=== PATIENT | female | born 1955 | race Caucasian/White ===

== ENCOUNTER 2025-03-05 18:18 | Inpatient (IN) ==
[2025-03-05] MEDS: 0.9 % SODIUM CHLORIDE 1,000 ML IV ONE (19:47)
[2025-03-05] MEDS: CEFEPIME 2 GM VIAL IV ONE (19:47)
[2025-03-05 19:53] LABS: Basophils # (Auto) 0.01 K/mcL (0.00-0.30); Basophils % (Auto) 0.1 % (0.0-2.0); Eosinophils # (Auto) 0.03 K/mcL (0.00-0.70); Eosinophils % (Auto) 0.2 % (0.0-7.0); Hematocrit 38.9 % (34.1-44.9); Hemoglobin 12.4 g/dL (11.2-15.7); Lymphocytes # (Auto) 0.91 K/mcL (1.50-4.80); Lymphocytes % (Auto) 7.0 % (15.5-49.0); Mean Corpuscular HGB Conc 31.9 g/dL (31.0-36.0); Monocytes # (Auto) 0.63 K/mcL (0.10-0.90); Monocytes % (Auto) 4.9 % (1.0-12.0); Neutrophils % (Auto) 87.3 % (38.0-78.0); Platelet Count 207 K/mcL (140-440); RBC 4.13 M/mcL (3.59-5.38); WBC 12.9 K/mcL (4.5-11.0)
[2025-03-05 20:07] LABS: ALT/SGPT 27 U/L (<40); AST/SGOT 14 U/L (<32); Albumin 3.5 gm/dL (3.2-5.2); Albumin/Globulin Ratio 1.3 (1.0-2.3); Alkaline Phosphatase 56 U/L (39-117); Anion Gap 11.0 (8.0-16.0); Bilirubin,Total 0.6 mg/dL (0.1-1.0); Blood Urea Nitrogen 19 mg/dL (8-23); Calcium 8.9 mg/dL (8.6-10.4); Carbon Dioxide 24 mmol/L (22-30); Chloride 103 mmol/L (96-108); Globulin 2.8 gm/dL (2.2-3.7); Glucose 236 mg/dL (70-105); Potassium 3.9 mmol/L (3.3-5.1); Sodium 138 mmol/L (133-145)
[2025-03-05] MEDS ORDERED: POLYETHYLENE GLYCOL 3350 17 GM PACKET PO PRN (21:00)
[2025-03-05] MEDS ORDERED: DEXTROSE 31 GM ORAL.SUSP PO PRN (22:16)
[2025-03-05] MEDS ORDERED: DEXTROSE 50% 50 ML VIAL IV PRN (22:16)
[2025-03-05] MEDS ORDERED: ONDANSETRON 4 MG/2 ML VIAL IV PRN (22:16)
[2025-03-05] MEDS ORDERED: SENNOSIDES 1 TABLET PO PRN (22:16)
[2025-03-05] MEDS ORDERED: HYDROcodone/APAP 10/325MG TABLET PO PRN (23:08)
[2025-03-05] MEDS ORDERED: tiZANidine 4 MG TABLET PO PRN (23:08)
[2025-03-05] MEDS: LACTATED RINGERS 1,000 ML IV SCH (23:10)
[2025-03-05] MEDS: 0.9 % SODIUM CHLORIDE 10 ML SYRINGE IV SCH (23:35)
[2025-03-05] MEDS: MELATONIN 3 MG TABLET PO SCH (23:36)
[2025-03-05] MEDS: CEFEPIME 2 GM VIAL IV SCH (23:37)
[2025-03-06] MEDS: CEFEPIME 2 GM VIAL IV SCH (00:41)
[2025-03-06 06:46] LABS: Basophils # (Auto) 0.01 K/mcL (0.00-0.30); Basophils % (Auto) 0.1 % (0.0-2.0); Eosinophils # (Auto) 0.04 K/mcL (0.00-0.70); Eosinophils % (Auto) 0.5 % (0.0-7.0); Hematocrit 36.4 % (34.1-44.9); Hemoglobin 11.6 g/dL (11.2-15.7); Lymphocytes # (Auto) 1.07 K/mcL (1.50-4.80); Lymphocytes % (Auto) 12.4 % (15.5-49.0); Mean Corpuscular HGB Conc 31.9 g/dL (31.0-36.0); Monocytes # (Auto) 0.50 K/mcL (0.10-0.90); Monocytes % (Auto) 5.8 % (1.0-12.0); Neutrophils % (Auto) 80.6 % (38.0-78.0); Platelet Count 186 K/mcL (140-440); RBC 3.81 M/mcL (3.59-5.38); WBC 8.6 K/mcL (4.5-11.0)
[2025-03-06 07:04] LABS: Phosphorous 3.5 mg/dL (2.5-4.5)
[2025-03-06 07:05] LABS: Anion Gap 11.0 (8.0-16.0); Blood Urea Nitrogen 19 mg/dL (8-23); C-Reactive Protein 15.00 mg/dL (0.03-0.80); Calcium 8.5 mg/dL (8.6-10.4); Carbon Dioxide 24 mmol/L (22-30); Chloride 105 mmol/L (96-108); Glucose 141 mg/dL (70-105); Potassium 3.8 mmol/L (3.3-5.1); Sodium 140 mmol/L (133-145)
[2025-03-06] MEDS: HEPARIN 5,000 UNIT/ML VIAL SQ SCH (08:23)
[2025-03-06] MEDS: INSULIN LISPRO 1 UNIT/0.01 ML UNIT SQ SCH ×2 (08:24)
[2025-03-06] MEDS: ISOSORBIDE MONONITRATE 30 MG TAB.XL.24H PO SCH (08:24)
[2025-03-06] MEDS: ASPIRIN 81 MG TAB.CHEW PO SCH (08:24)
[2025-03-06] MEDS: INSULIN GLARGINE, HUMAN 1 UNIT/0.01 ML SQ SCH (08:25)
[2025-03-06] MEDS: CARVEDILOL 12.5 MG TABLET PO SCH (08:25)
[2025-03-06] MEDS: LEVOTHYROXINE 25 MCG TABLET PO SCH (08:25)
[2025-03-06] MEDS: LEVOTHYROXINE SODIUM 112 MCG TABLET PO SCH (08:25)
[2025-03-06] MEDS: ACETAMINOPHEN 325 MG TABLET PO PRN (16:58)
[2025-03-06] MEDS: ATORVASTATIN 40 MG TABLET PO SCH (21:34)
[2025-03-06] MEDS: FUROSEMIDE 40 MG/4 ML VIAL IV ONE ×2 (23:34→23:37)
[2025-03-07 06:49] LABS: Basophils # (Auto) 0.03 K/mcL (0.00-0.30); Basophils % (Auto) 0.5 % (0.0-2.0); Eosinophils # (Auto) 0.06 K/mcL (0.00-0.70); Eosinophils % (Auto) 1.0 % (0.0-7.0); Hematocrit 37.6 % (34.1-44.9); Hemoglobin 12.1 g/dL (11.2-15.7); Lymphocytes # (Auto) 0.60 K/mcL (1.50-4.80); Lymphocytes % (Auto) 9.9 % (15.5-49.0); Mean Corpuscular HGB Conc 32.2 g/dL (31.0-36.0); Monocytes # (Auto) 0.44 K/mcL (0.10-0.90); Monocytes % (Auto) 7.2 % (1.0-12.0); Neutrophils % (Auto) 80.9 % (38.0-78.0); Platelet Count 192 K/mcL (140-440); RBC 4.03 M/mcL (3.59-5.38); WBC 6.1 K/mcL (4.5-11.0)
[2025-03-07 07:07] LABS: Anion Gap 12.0 (8.0-16.0); Blood Urea Nitrogen 22 mg/dL (8-23); C-Reactive Protein 8.78 mg/dL (0.03-0.80); Calcium 9.1 mg/dL (8.6-10.4); Carbon Dioxide 27 mmol/L (22-30); Chloride 102 mmol/L (96-108); Glucose 164 mg/dL (70-105); Phosphorous 3.6 mg/dL (2.5-4.5); Potassium 3.6 mmol/L (3.3-5.1); Sodium 141 mmol/L (133-145)
[2025-03-07] MEDS: LEVOFLOXACIN 750 MG/150 ML BAG IV SCH (12:25)
[2025-03-08] MEDS ORDERED: LEVOFLOXACIN 750 MG TABLET PO SCH (09:00)
[2025-03-08] MEDS ORDERED: LEVOFLOXACIN 750 MG/150 ML BAG IV SCH (09:00)
== END 2025-03-07 14:20 | disposition home or self-care (01) | DRG 872 ==
LOC: ED 18:18 → MEDSUR 22:12
PROVIDERS: ADMIT Student in an Organized Health Care Education/Training Program; ATTEND Student in an Organized Health Care Education/Training Program